=== PATIENT | female | born 1945 | race Caucasian/White ===

== ENCOUNTER 2017-03-30 13:33 | Inpatient (IN) | payer MEDICARE, SELFPAY ==
[2017-03-30 13:34] VITALS: BP 93/31; PULSE 76; RESP 22; TEMP 36.4; O2SAT 96; BMI 24.2
[2017-03-30 15:04] LABS: Absolute Lymphocyte Count 1.76 X10^3/ul (0.83-4.51); Absolute Neutrophil Count 12.1 X10^3/uL (2.0-7.7); Basophil# 0.02 X10^3/uL; Basophil% 0.1 % (0-1); Eosinophil# 0.11 X10^3/uL; Eosinophils% 0.7 % (0-5); Hematocrit 42.7 % (37-47); Hemoglobin 14.8 g/dl (12.0-15.0); Lymphocyte # 1.76 X10^3/ul (4.0); Mean Corp Hgb Conc 34.7 g/gl (32-36); Mean Corpuscular Hgb 32.2 pg (27.0-32.0); Mean Platelet Vol. 9.2 fl (6.2-12.0); Monocyte# 0.73 X10^3/uL; Neutrophil # 12.08 X10^3/uL (2.7-7.7); Neutrophil % 82.1 % (47-70); Platelet Count 361 K/mm3 (150-450); RBC Distribution Width CV 13.2 % (11.6-14.6); RBC Distribution Width SD 43.8 fl (35.1-43.9); Red Blood Count 4.59 M/mm3 (4.2-5.4); White Blood Count 14.7 K/mm3 (4.4-11.0)
[2017-03-30 15:06] LABS: POSITIVE COUNT NO; POSITIVE DIFFERENTIAL NO; POSITIVE MORPHOLOGY NO
--- NOTE | 2017-03-30 15:09 | EKG12_ITS ---
Test Reason : ABD PAIN Blood Pressure : / mmHG Vent. Rate : 069 BPM Atrial Rate : 069 BPM P-R Int : 196 ms QRS Dur : 092 ms QT Int : 420 ms P-R-T Axes : 053 015 063 degrees QTc Int : 450 ms Normal sinus rhythm Nonspecific T wave abnormality Abnormal ECG Confirmed by LEVY CHAU ([id number]), editorial manager PAM JIANG ([id number] on 04/01/2017 12:02:10 PM Referred By: MYNOR Confirmed By:LEVY CHAU
[2017-03-30] MEDS: Ondansetron 4 MG/2 ML Vial IV (15:24)
[2017-03-30] MEDS: 0.9% Normal Saline 1,000 ML 1000 ML IV (15:24)
[2017-03-30 15:40] VITALS: BP 122/63; PULSE 68; RESP 16
[2017-03-30 15:51] LABS: Anion Gap 9 (5-15); BUN 32 mg/dL (7-18); BUN/Creat Ratio 34.5 RATIO (10-20); Calcium,Total 9.2 mg/dL (8.5-10.1); Chloride 103 mmol/L (98-107); Creatinine, Serum 0.93 mg/dL (0.55-1.02); EST Glomerular Filtration Rate 64 mL/min (>60); Est Glom Filt Rate - Afr Amer 77 mL/min (>60); Glucose 149 mg/dL (70-110); Lipase 39667 U/L (73-393); Potassium 3.4 mmol/L (3.5-5.1); Sodium Level 139 mmol/L (136-145)
[2017-03-30 15:55] LABS: Lactic Acid 1.2 mmol/L (0.4-2.0)
--- NOTE | 2017-03-30 15:58 | ED.RN ---
PT REFUSES CT. STATES SHE FEELS IF THE PAIN IS CAUSED BY PANCREAS AND DOES NOT WANT ANOTHER CT. LAST STUDY DONE LAST YEAR. DR HANNA.
[2017-03-30 16:12] LABS: AST(SGOT) 47 U/L (15-37); Alanine Aminotransfer ALT/SGPT 56 U/L (12-78); Albumin, Serum 3.8 g/dL (3.4-5.0); Alkaline Phosphatase 71 U/L (45-117); Bilirubin, Direct 0.06 mg/dL (0.00-0.30); Globulin 3.9 g/dL (2.2-4.2); Protein, Total 7.7 g/dL (6.4-8.2)
--- NOTE | 2017-03-30 16:20 | ED.DCSUM_ITS ---
- ER Visit Summary Date of Service: 03/30/17 Chief Complaint: Abdominal pain History of Present Illness: The patient is a 71 F with history of multiple episodes of pancreatitis presents with 1 day of epigastric abdominal pain. Patient states this is consistent with her pancreatitis. She has been having nausea, vomiting, and epigastric abdominal pain radiating in a bandlike pattern around into the back. She denies fever, shortness of breath, urinary symptoms, diarrhea, or other complaints. She had multiple episodes of pancreatitis in 2016 and was told she had a cyst in her pancreas that would require resection. Patient did not want surgery and went 1 year without any issues. Now she is having another flare. She denies any other history. Denies any cancer on biopsy of her pancreas. She denies any history of alcoholism or alcoholic pancreatitis, she still has her gallbladder and states that it has never been implicated in her pancreatitis. Physical Examination: Vital signs: afebrile, hemodynamically stable, no hypoxia on room air General: well nourished, well developed, in no distress Skin: warm, dry, no rash, no pallor HEENT: normocephalic and atraumatic; PERRL, EOMI, moist mucous membranes Cardiovascular: regular rate and rhythm without murmurs, no peripheral edema, 2 + pulses all distal extremities Respiratory: No increased work of breathing, lungs are clear to auscultation bilaterally, no rales, rhonchi or wheezing Abdominal: Abdomen is soft, tender in the epigastrium with hyperactive bowel sounds, voluntary guarding, no rebound, no masses MSK: Moves all extremities, no deformities, normal strength Neuro: Awake and alert, oriented ?4. No facial droop, sensation and motor function intact and symmetric Test Results: Abnormal Lab Results 03/30/17 03/30/17 03/30/17 14:10 14:10 14:10 WBC 14.7 H RBC 4.59 Hgb 14.8 Hct 42.7 MCV 93.0 MCH 32.2 H MCHC 34.7 RDW 13.2 RDW Differential 43.8 Plt Count 361 MPV 9.2 Immature Gran % (Auto) 0.100 Neut % (Auto) 82.1 H Lymph % (Auto) 12.0 L [place] % (Auto) 5.0 Eos % (Auto) 0.7 Baso % (Auto) 0.1 Absolute Neuts (auto) 12.1 H Absolute Lymphs (auto) 1.76 Total Counted Not Reportable Sodium 139 Potassium 3.4 L Chloride 103 Carbon Dioxide 27.0 Anion Gap 9 BUN 32 H Creatinine 0.93 Estim Creat Clear Calc 49.30 Est GFR (MDRD) Af Amer 77 Est GFR (MDRD) Non-Af 64 BUN/Creatinine Ratio 34.5 H Glucose 149 H Lactic Acid Calcium 9.2 Total Bilirubin 0.20 Direct Bilirubin 0.06 AST 47 H ALT 56 Alkaline Phosphatase 71 Troponin I < 0.02 Total Protein 7.7 Albumin 3.8 Globulin 3.9 Lipase 55627 H 03/30/17 15:21 WBC RBC Hgb Hct MCV MCH MCHC RDW RDW Differential Plt Count MPV Immature Gran % (Auto) Neut % (Auto) Lymph % (Auto) [place] % (Auto) Eos % (Auto) Baso % (Auto) Absolute Neuts (auto) Absolute Lymphs (auto) Total Counted Sodium Potassium Chloride Carbon Dioxide Anion Gap BUN Creatinine Estim Creat Clear Calc Est GFR (MDRD) Af Amer Est GFR (MDRD) Non-Af BUN/Creatinine Ratio Glucose Lactic Acid 1.2 Calcium Total Bilirubin Direct Bilirubin AST ALT Alkaline Phosphatase Troponin I Total Protein Albumin Globulin Lipase Emergency Department Course and Treatment: She was given Zofran, morphine and IV hydration. Given the reported history of pancreatic abnormality patient as well as patient's voluntary guarding on exam, a CT scan was recommended to evaluate for any possible complicated pancreatitis or a gallbladder ultrasound to eval for gallstone pancreatitis. Patient refused any imaging and stated she knows it is the cyst in her pancreas. Lipase 39,000 on workup. Leukocytosis of 14.7. Lactate normal. Troponin negative. EKG showed no ischemic changes. Patient will be admitted for further pain control and management of acute pancreatitis, including IV fluids while patient is n.p.o. She was advised that she may require imaging or further workup to evaluate the underlying cause of her pancreatitis today despite her refusing any imaging in the emergency department. She discussed with Dr. Marrero. Treatment Plan: [] Disposition: [] Impression: Acute pancreatitis, history of pancreatitis This note was generated with [employer] dictation software. It may contain incorrect words, spelling, and punctuation that were not noted in review of the chart prior to signing ED Disposition - Plan for ED Patient: Chief Complaint: Abd Pain Referrals: Care Physician,No Primary [Primary Care Provider] -
[2017-03-30 16:35] VITALS: BMI 24.1
[2017-03-30 17:15] VITALS: BP 116/67; PULSE 74; RESP 16; O2SAT 97
--- NOTE | 2017-03-30 17:15 | NURSING ---
208 ANIKA ACUTE ON CHRONIC PANCREATITIS
--- NOTE | 2017-03-30 17:27 | PCM.HP.STD ---
<Jennifer Camara - Last Filed: 03/30/17 18:01> Problem List (1) Acute on chronic pancreatitis Status: Acute History of Present Illness Date of Admission: 03/30/17 Chief Complaint: abdominal pain, nausea. The patient is a 71 year old F who presents to the emergency room with abdominal pain and nausea which began around 10 AM this morning. Patient has had pancreatitis in the past, she states she has had a total of 4 episodes where she has been treated for pancreatitis, most recently in 2016. This morning prior to work she states she developed some discomfort in her abdomen which gradually worsened throughout the day. Patient also became nauseated. Denies emesis. States she did have a few episodes of chills, no subjective fever. She describes the abdominal pain as sharp in nature and radiated to her left side and back. She denies diarrhea, recent illness. Denies other associated symptoms. Patient states she was previously diagnosed with a pancreatic cyst which was recommended to be surgically removed. It was recommended that she follow-up with a specialist in [facility] [place] which she has declined. She states when she has a flareup it typically resolves with nothing to eat or drink and IV fluids. She does not want any imaging of her abdomen. She states she does not want any dye injected for the reasoning that she believes she really knows what is causing her pancreatitis. She states her pancreatic cyst was biopsied in the past and found to be benign. She denies any other chronic medical history. Past Medical History Past Medical History (Chronic Problems): Chronic Problems Pancreatic benign cyst (Chronic) Allergies No Known Allergies Allergy (Verified 03/30/17 13:37) Home Medications: Ambulatory Orders Medication Instructions Recorded Ascorbic Acid [Vitamin C] 1,000 mg PO BREAKFAST 12/25/12 Co Q10 200 [Co Q-10] 100 mg PO DAILY 12/25/12 Magnesium 250 mg PO DAILY 12/25/12 Multivits,Ca,Minerals/Iron/FA [Sm 1 each PO DAILY 12/25/12 Women's One Daily Tablet] [place] 3/Dha/Epa/Vitamin D3 1 each PO DAILY 12/25/12 [[place]-3 + Vitamin D3 Softgel] Calcium Carbonate/Vitamin D3 1 each PO DAILY 01/08/16 [Calcium 500-Vit D3 200 Tablet] Cholecalciferol (VIT D3) [Vitamin 1,000 unit PO DAILY 01/08/16 D3] Acetaminophen [Extra Strength 500 mg PO 4X/DAY PRN PRN #1 tablet 01/10/16 Non-Aspirin] Ibuprofen 600 mg PO 4X/DAY PRN #1 tablet 01/10/16 Surgical History: - - Rotator cuff tear, rectocele repair, shoulder surgery Psychiatric History: No pertinent psych hx 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 Review of Systems Constitutional: Reports: Chills. Denies: Anorexia, Fever, Weakness, Fatigue HEENT: Denies: Head Aches, Sinus Congestion, Sinus Drainage Respiratory: Denies: Cough, Shortness of breath at rest, Sputum production Gastrointestinal: Reports: Abdominal Pain, Nausea. Denies: Diarrhea, Hematemesis, Hematochezia, Melena, Vomiting Genitourinary: Denies: Dysuria Musculoskeletal: Denies: Joint Pain, Joint Tenderness Skin: Denies: Rash, Wounds Neurological: Denies: Numbness, Tingling, Focal weakness Psychiatric: Denies: Anxiety, Depression, Homicidal Ideations, Suicidal Ideations Hematologic/ Lymphatic: Denies: Easy Bruising, Easy Bleeding VTE Information - Inpt Only VTE Present on Admission: No VTE Mechan Device Prophylaxis: None VTE Pharm Prophylaxis ordered?: Yes - Physical Exam General: Alert, Oriented x3, Cooperative, No apparent distress HEENT: Atraumatic, PERRLA, EOMI, Normocephalic Neck: Supple, No JVD, Negative Carotid Bruits Lungs: Clear to auscultation, Normal air movement Cardiovascular: Regular rate, Regular Rhythm, Normal S1, Normal S2, No murmurs Abdomen: Bowel Sounds Present, Soft, Non-Distended, Tender Extremities: No clubbing, No cyanosis, No edema, Capillary Refill Less than 3 Seconds Skin: No rashes, No breakdown Musculoskeletal: No Tenderness to Palpation of Joints or Extremities Neurological: Cranial nerves II-XII grossly intact, Neuro grossly intact Psych/Mental Status: Normal Affect, Appropriate Vital Signs Temp Pulse Resp BP Pulse Ox 97.6 F L 74 16 116/67 97 03/30/17 13:34 03/30/17 17:15 03/30/17 17:15 03/30/17 17:15 03/30/17 17:15 Oxygen Delivery Method Room Air Weight: 63.957 kg Body Mass Index (BMI) 24.2 Laboratory Tests Past 24 Hrs 03/30/17 03/30/17 03/30/17 14:10 14:10 14:10 WBC 14.7 H RBC 4.59 Hgb 14.8 Hct 42.7 MCV 93.0 MCH 32.2 H MCHC 34.7 RDW 13.2 RDW Differential 43.8 Plt Count 361 MPV 9.2 Immature Gran % (Auto) 0.100 Neut % (Auto) 82.1 H Lymph % (Auto) 12.0 L [place] % (Auto) 5.0 Eos % (Auto) 0.7 Baso % (Auto) 0.1 Absolute Neuts (auto) 12.1 H Absolute Lymphs (auto) 1.76 Total Counted Not Reportable Sodium 139 Potassium 3.4 L Chloride 103 Carbon Dioxide 27.0 Anion Gap 9 BUN 32 H Creatinine 0.93 Estim Creat Clear Calc 49.30 Est GFR (MDRD) Af Amer 77 Est GFR (MDRD) Non-Af 64 BUN/Creatinine Ratio 34.5 H Glucose 149 H Lactic Acid Calcium 9.2 Total Bilirubin 0.20 Direct Bilirubin 0.06 AST 47 H ALT 56 Alkaline Phosphatase 71 Troponin I < 0.02 Total Protein 7.7 Albumin 3.8 Globulin 3.9 Lipase 49106 H 03/30/17 15:21 WBC RBC Hgb Hct MCV MCH MCHC RDW RDW Differential Plt Count MPV Immature Gran % (Auto) Neut % (Auto) Lymph % (Auto) [place] % (Auto) Eos % (Auto) Baso % (Auto) Absolute Neuts (auto) Absolute Lymphs (auto) Total Counted Sodium Potassium Chloride Carbon Dioxide Anion Gap BUN Creatinine Estim Creat Clear Calc Est GFR (MDRD) Af Amer Est GFR (MDRD) Non-Af BUN/Creatinine Ratio Glucose Lactic Acid 1.2 Calcium Total Bilirubin Direct Bilirubin AST ALT Alkaline Phosphatase Troponin I Total Protein Albumin Globulin Lipase Assessment/Plan 1. Acute on chronic pancreatitis-lipase on admission over 39,000. Patient has documented lipase in 2012 and 2015 which was equally elevated. NPO. IV fluids. Surgery consult. Morphine prn for pain. Zofran for nausea. Discussed with patient recommendations of repeat abdominal imaging which she currently declines. She states she has had multiple episodes of pancreatitis in the past secondary to a pancreatic cyst. She declines further intervention of cyst. Patient denies chronic alcohol use. Autoimmune studies were completed in the past which were found to be negative. Previous triglycerides during episode of pancreatitis WNL. Afebrile. Patient does have mild leukocytosis. Continue to monitor. 2. Hypokalemia, mild-replace orally. Monitor BMP. 3. Mild dehydration-secondary to #1. IV fluids. Continue to monitor. 4. Elevated glucose- Check hemoglobin A1C. DVT prophylaxis-Lovenox SC This patient was seen by NIALL Osullivan under the supervision of Dr. Marrero. <Baljit Marrero - Last Filed: 03/30/17 20:27> Problem List (1) Pancreatic benign cyst Status: Chronic (2) Acute on chronic pancreatitis Status: Acute History of Present Illness Seen and examined The patient has history of recurrent pancreatitis, first time in 2011 and was severe and then in remission for next 3 years. After that, she had 3 episodes of pancreatitis in year 2016 and then had follow-up visit to [facility], Pancreatologist and had an extensive workup there. At that time it was found that she has benign pancreatic cyst on biopsy which is pressing on the pancreatic duct and possible cause for her recurrent pancreatitis. Patient does not have history of alcohol or gallstone related pancreatitis. Currently, her pain is much better. She also had paraspinal upper lumbar back pain due to pancreatitis which has relieved. [] Past Medical History Allergies No Known Allergies Allergy (Verified 03/30/17 13:37) - Physical Exam Cardiovascular: Regular rate, No murmurs Abdomen: Bowel Sounds Present, Non-Distended, Hyperactive Bowel Sounds, Tender - Mainly over epigastric region. Extremities: No edema, Capillary Refill Less than 3 Seconds Musculoskeletal: No Tenderness to Palpation of Joints or Extremities Vital Signs Temp Pulse Resp BP Pulse Ox 98.6 F 70 16 116/65 96 03/30/17 18:11 03/30/17 18:11 03/30/17 18:11 03/30/17 18:11 03/30/17 18:11 Oxygen Delivery Method Room Air Weight: 141 lb 8.588 oz Body Mass Index (BMI) 25.0 Assessment/Plan This patient was seen in conjunction with Jennifer KEITH. I have independently interviewed and examined the patient and reviewed pertinent history, examination findings, laboratory and plan of management. I have reviewed the note and agree with the documented findings with the few additional points. In brief, patient is admitted for acute on recurrent pancreatitis, first episode in 2011 as mentioned in history of present illness. It seems that she has recurrent pancreatitis due to benign pancreatic cyst, found on biopsy which is pressing on the pancreatic duct and possible cause for her recurrent pancreatitis. Patient does not have history of alcohol or gallstone related pancreatitis. Currently, her abdominal pain is much better. Her upper back pain is relieved. Continue the management as mentioned above. She does not want any imaging test. I have discussed my assessment with BOOT TURNERJennifer and orders have been reviewed. Code Visit Inpatient E&M: 55949 Init Hosp L3
[2017-03-30 17:40] VITALS: BMI 25.0
--- NOTE | 2017-03-30 17:42 | HP.PCM_ITS ---
<Jennifer Camara - Last Filed: 03/30/17 18:01> Problem List (1) Acute on chronic pancreatitis Status: Acute History of Present Illness Date of Admission: 03/30/17 Chief Complaint: abdominal pain, nausea. The patient is a 71 year old F who presents to the emergency room with abdominal pain and nausea which began around 10 AM this morning. Patient has had pancreatitis in the past, she states she has had a total of 4 episodes where she has been treated for pancreatitis, most recently in 2016. This morning prior to work she states she developed some discomfort in her abdomen which gradually worsened throughout the day. Patient also became nauseated. Denies emesis. States she did have a few episodes of chills, no subjective fever. She describes the abdominal pain as sharp in nature and radiated to her left side and back. She denies diarrhea, recent illness. Denies other associated symptoms. Patient states she was previously diagnosed with a pancreatic cyst which was recommended to be surgically removed. It was recommended that she follow-up with a specialist in [facility] which she has declined. She states when she has a flareup it typically resolves with nothing to eat or drink and IV fluids. She does not want any imaging of her abdomen. She states she does not want any dye injected for the reasoning that she believes she really knows what is causing her pancreatitis. She states her pancreatic cyst was biopsied in the past and found to be benign. She denies any other chronic medical history. Past Medical History Past Medical History (Chronic Problems): Chronic Problems Pancreatic benign cyst (Chronic) Allergies No Known Allergies Allergy (Verified 03/30/17 13:37) Home Medications: Ambulatory Orders Medication Instructions Recorded Ascorbic Acid [Vitamin C] 1,000 mg PO BREAKFAST 12/25/12 Co Q10 200 [Co Q-10] 100 mg PO DAILY 12/25/12 Magnesium 250 mg PO DAILY 12/25/12 Multivits,Ca,Minerals/Iron/FA [Sm 1 each PO DAILY 12/25/12 Women's One Daily Tablet] [place] 3/Dha/Epa/Vitamin D3 1 each PO DAILY 12/25/12 [[place]-3 + Vitamin D3 Softgel] Calcium Carbonate/Vitamin D3 1 each PO DAILY 01/08/16 [Calcium 500-Vit D3 200 Tablet] Cholecalciferol (VIT D3) [Vitamin 1,000 unit PO DAILY 01/08/16 D3] Acetaminophen [Extra Strength 500 mg PO 4X/DAY PRN PRN #1 tablet 01/10/16 Non-Aspirin] Ibuprofen 600 mg PO 4X/DAY PRN #1 tablet 01/10/16 Surgical History: - - Rotator cuff tear, rectocele repair, shoulder surgery Psychiatric History: No pertinent psych hx 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 Review of Systems Constitutional: Reports: Chills. Denies: Anorexia, Fever, Weakness, Fatigue HEENT: Denies: Head Aches, Sinus Congestion, Sinus Drainage Respiratory: Denies: Cough, Shortness of breath at rest, Sputum production Gastrointestinal: Reports: Abdominal Pain, Nausea. Denies: Diarrhea, Hematemesis, Hematochezia, Melena, Vomiting Genitourinary: Denies: Dysuria Musculoskeletal: Denies: Joint Pain, Joint Tenderness Skin: Denies: Rash, Wounds Neurological: Denies: Numbness, Tingling, Focal weakness Psychiatric: Denies: Anxiety, Depression, Homicidal Ideations, Suicidal Ideations Hematologic/ Lymphatic: Denies: Easy Bruising, Easy Bleeding VTE Information - Inpt Only VTE Present on Admission: No VTE Mechan Device Prophylaxis: None VTE Pharm Prophylaxis ordered?: Yes - Physical Exam General: Alert, Oriented x3, Cooperative, No apparent distress HEENT: Atraumatic, PERRLA, EOMI, Normocephalic Neck: Supple, No JVD, Negative Carotid Bruits Lungs: Clear to auscultation, Normal air movement Cardiovascular: Regular rate, Regular Rhythm, Normal S1, Normal S2, No murmurs Abdomen: Bowel Sounds Present, Soft, Non-Distended, Tender Extremities: No clubbing, No cyanosis, No edema, Capillary Refill Less than 3 Seconds Skin: No rashes, No breakdown Musculoskeletal: No Tenderness to Palpation of Joints or Extremities Neurological: Cranial nerves II-XII grossly intact, Neuro grossly intact Psych/Mental Status: Normal Affect, Appropriate Vital Signs Temp Pulse Resp BP Pulse Ox 97.6 F L 74 16 116/67 97 03/30/17 13:34 03/30/17 17:15 03/30/17 17:15 03/30/17 17:15 03/30/17 17:15 Oxygen Delivery Method Room Air Weight: 63.957 kg Body Mass Index (BMI) 24.2 Laboratory Tests Past 24 Hrs 03/30/17 03/30/17 03/30/17 14:10 14:10 14:10 WBC 14.7 H RBC 4.59 Hgb 14.8 Hct 42.7 MCV 93.0 MCH 32.2 H MCHC 34.7 RDW 13.2 RDW Differential 43.8 Plt Count 361 MPV 9.2 Immature Gran % (Auto) 0.100 Neut % (Auto) 82.1 H Lymph % (Auto) 12.0 L [place] % (Auto) 5.0 Eos % (Auto) 0.7 Baso % (Auto) 0.1 Absolute Neuts (auto) 12.1 H Absolute Lymphs (auto) 1.76 Total Counted Not Reportable Sodium 139 Potassium 3.4 L Chloride 103 Carbon Dioxide 27.0 Anion Gap 9 BUN 32 H Creatinine 0.93 Estim Creat Clear Calc 49.30 Est GFR (MDRD) Af Amer 77 Est GFR (MDRD) Non-Af 64 BUN/Creatinine Ratio 34.5 H Glucose 149 H Lactic Acid Calcium 9.2 Total Bilirubin 0.20 Direct Bilirubin 0.06 AST 47 H ALT 56 Alkaline Phosphatase 71 Troponin I < 0.02 Total Protein 7.7 Albumin 3.8 Globulin 3.9 Lipase 12726 H 03/30/17 15:21 WBC RBC Hgb Hct MCV MCH MCHC RDW RDW Differential Plt Count MPV Immature Gran % (Auto) Neut % (Auto) Lymph % (Auto) [place] % (Auto) Eos % (Auto) Baso % (Auto) Absolute Neuts (auto) Absolute Lymphs (auto) Total Counted Sodium Potassium Chloride Carbon Dioxide Anion Gap BUN Creatinine Estim Creat Clear Calc Est GFR (MDRD) Af Amer Est GFR (MDRD) Non-Af BUN/Creatinine Ratio Glucose Lactic Acid 1.2 Calcium Total Bilirubin Direct Bilirubin AST ALT Alkaline Phosphatase Troponin I Total Protein Albumin Globulin Lipase Assessment/Plan 1. Acute on chronic pancreatitis-lipase on admission over 39,000. Patient has documented lipase in 2012 and 2015 which was equally elevated. NPO. IV fluids. Surgery consult. Morphine prn for pain. Zofran for nausea. Discussed with patient recommendations of repeat abdominal imaging which she currently declines. She states she has had multiple episodes of pancreatitis in the past secondary to a pancreatic cyst. She declines further intervention of cyst. Patient denies chronic alcohol use. Autoimmune studies were completed in the past which were found to be negative. Previous triglycerides during episode of pancreatitis WNL. Afebrile. Patient does have mild leukocytosis. Continue to monitor. 2. Hypokalemia, mild-replace orally. Monitor BMP. 3. Mild dehydration-secondary to #1. IV fluids. Continue to monitor. 4. Elevated glucose- Check hemoglobin A1C. DVT prophylaxis-Lovenox SC This patient was seen by NIALL Osullivan under the supervision of Dr. Marrero. <Baljit Marrero - Last Filed: 03/30/17 20:27> Problem List (1) Pancreatic benign cyst Status: Chronic (2) Acute on chronic pancreatitis Status: Acute History of Present Illness Seen and examined The patient has history of recurrent pancreatitis, first time in 2011 and was severe and then in remission for next 3 years. After that, she had 3 episodes of pancreatitis in year 2016 and then had follow-up visit to [facility], Pancreatologist and had an extensive workup there. At that time it was found that she has benign pancreatic cyst on biopsy which is pressing on the pancreatic duct and possible cause for her recurrent pancreatitis. Patient does not have history of alcohol or gallstone related pancreatitis. Currently, her pain is much better. She also had paraspinal upper lumbar back pain due to pancreatitis which has relieved. [] Past Medical History Allergies No Known Allergies Allergy (Verified 03/30/17 13:37) - Physical Exam Cardiovascular: Regular rate, No murmurs Abdomen: Bowel Sounds Present, Non-Distended, Hyperactive Bowel Sounds, Tender - Mainly over epigastric region. Extremities: No edema, Capillary Refill Less than 3 Seconds Musculoskeletal: No Tenderness to Palpation of Joints or Extremities Vital Signs Temp Pulse Resp BP Pulse Ox 98.6 F 70 16 116/65 96 03/30/17 18:11 03/30/17 18:11 03/30/17 18:11 03/30/17 18:11 03/30/17 18:11 Oxygen Delivery Method Room Air Weight: 141 lb 8.588 oz Body Mass Index (BMI) 25.0 Assessment/Plan This patient was seen in conjunction with Jennifer KEITH. I have independently interviewed and examined the patient and reviewed pertinent history, examination findings, laboratory and plan of management. I have reviewed the note and agree with the documented findings with the few additional points. In brief, patient is admitted for acute on recurrent pancreatitis, first episode in 2011 as mentioned in history of present illness. It seems that she has recurrent pancreatitis due to benign pancreatic cyst, found on biopsy which is pressing on the pancreatic duct and possible cause for her recurrent pancreatitis. Patient does not have history of alcohol or gallstone related pancreatitis. Currently, her abdominal pain is much better. Her upper back pain is relieved. Continue the management as mentioned above. She does not want any imaging test. I have discussed my assessment with RETAIL CUSTOMER SERVICE REPRESENTATIVEJennifer and orders have been reviewed. Code Visit Inpatient E&M: 72588 Init Hosp L3
[2017-03-30 17:47] VITALS: PULSE 70
[2017-03-30 18:11] VITALS: BP 116/65; PULSE 70; RESP 16; TEMP 37; O2SAT 96
[2017-03-30] MEDS: 0.9% Normal Saline 1,000 ML 150 ML IV (18:20)
[2017-03-30 21:18] VITALS: BP 117/57; PULSE 61; RESP 18; TEMP 36.2; O2SAT 94
[2017-03-31 03:40] VITALS: BP 109/48; PULSE 58; RESP 20; TEMP 36.4; O2SAT 95
[2017-03-31] MEDS: 0.9% Normal Saline 1,000 ML 150 ML IV (03:40)
[2017-03-31 08:04] LABS: Anion Gap 10 (5-15); BUN 20 mg/dL (7-18); BUN/Creat Ratio 23.9 RATIO (10-20); Calcium,Total 8.3 mg/dL (8.5-10.1); Chloride 105 mmol/L (98-107); Cholesterol 190 mg/dL (200); Creatinine, Serum 0.84 mg/dL (0.55-1.02); EST Glomerular Filtration Rate 72 mL/min (>60); Est Glom Filt Rate - Afr Amer 87 mL/min (>60); Estimated Creatinine Clearance 49.99 ml/min; Glucose 89 mg/dL (70-110); High Density Lipoprotein 42 mg/dL; Lipase 3725 U/L (73-393); Potassium 3.8 mmol/L (3.5-5.1); Sodium Level 140 mmol/L (136-145); Triglycerides 93 mg/dL; Very Low Density Lipoprotein 19 mg/dL (5-40)
[2017-03-31 08:08] LABS: Hemoglobin 13.1 g/dl (12.0-15.0); Mean Corp Hgb Conc 33.6 g/gl (32-36); Mean Corpuscular Hgb 31.9 pg (27.0-32.0); Mean Corpuscular Volume 94.9 fL (81-99); Mean Platelet Vol. 9.3 fl (6.2-12.0); Platelet Count 312 K/mm3 (150-450); RBC Distribution Width CV 13.3 % (11.6-14.6); RBC Distribution Width SD 44.6 fl (35.1-43.9); Red Blood Count 4.11 M/mm3 (4.2-5.4); White Blood Count 6.8 K/mm3 (4.4-11.0)
[2017-03-31 08:18] LABS: Scan Indicated on CBC? Y/N NO
[2017-03-31 08:30] VITALS: BP 110/62; PULSE 61; RESP 16; TEMP 36.6; O2SAT 95
--- NOTE | 2017-03-31 10:06 | PCM.PROGNOTE ---
Subjective: Patient seen and examined. Nausea improved. Denies fever, chills. Abdominal pain improved, continues to have mild tenderness to palpation. Tolerating clear liquid diet. Lipase significantly improved overnight. - Physical Exam General: Alert, Oriented x3, Cooperative, No apparent distress HEENT: Atraumatic, PERRLA, EOMI, Normocephalic Neck: Supple, No JVD, Negative Carotid Bruits Lungs: Clear to auscultation, Normal air movement Cardiovascular: Regular rate, Regular Rhythm, Normal S1, Normal S2, No murmurs Abdomen: Bowel Sounds Present, Soft, Non-Distended, - - Mild tenderness to palpation Extremities: No clubbing, No cyanosis, No edema, Capillary Refill Less than 3 Seconds Skin: No rashes, No breakdown Musculoskeletal: No Tenderness to Palpation of Joints or Extremities Neurological: Cranial nerves II-XII grossly intact, Neuro grossly intact Psych/Mental Status: Normal Affect, Appropriate Vital Signs Temp Pulse Resp BP Pulse Ox 97.8 F 61 16 110/62 95 03/31/17 08:30 03/31/17 08:30 03/31/17 08:30 03/31/17 08:30 03/31/17 08:30 Oxygen Delivery Method Room Air Weight: 64.2 kg Body Mass Index (BMI) 25.0 Intake and Output for Last 24 Hours 03/29/17 03/30/17 03/31/17 23:59 23:59 23:59 Intake Total 729 / 729 658 / 658 Balance 729 / 729 658 / 658 Laboratory Tests Past 24 Hrs 03/31/17 03/31/17 03/31/17 05:58 05:58 05:58 WBC 6.8 RBC 4.11 L Hgb 13.1 Hct 39.0 MCV 94.9 MCH 31.9 MCHC 33.6 RDW 13.3 RDW Differential 44.6 H Plt Count 312 MPV 9.3 Sodium 140 Potassium 3.8 Chloride 105 Carbon Dioxide 25.0 Anion Gap 10 BUN 20 H Creatinine 0.84 Estim Creat Clear Calc 49.99 Est GFR (MDRD) Af Amer 87 Est GFR (MDRD) Non-Af 72 BUN/Creatinine Ratio 23.9 H Glucose 89 Hemoglobin A1c Pending Calcium 8.3 L Triglycerides 93 Cholesterol 190 LDL Cholesterol 129 VLDL Cholesterol 19 HDL Cholesterol 42 Lipase 3725 H Assessment/Plan 1. Acute on chronic pancreatitis-lipase on admission over 39,000. Lipase improved to 3725. Patient has documented lipase in 2013 and 2016 which were equally elevated. NPO. IV fluids. Surgery consult. Morphine prn for pain. Zofran for nausea. Discussed with patient recommendations of repeat abdominal imaging which she currently declines. She states she has had multiple episodes of pancreatitis in the past secondary to a pancreatic cyst. She declines further intervention of cyst. Patient denies chronic alcohol use. Autoimmune studies were completed in the past which were found to be negative. Previous triglycerides during episode of pancreatitis WNL. Afebrile. Mild leukocytosis on admission has resolved. Continue IV fluids and n.p.o. through today. Anticipate advance diet tomorrow with possible discharge. 2. Hypokalemia, mild-replaced orally. Monitor BMP. 3. Mild dehydration-secondary to #1. Improved, continue IV fluids. 4. Elevated glucose-hemoglobin A1c 5.7%. DVT prophylaxis-Lovenox SC This patient was seen by NIALL Osullivan under the supervision of Dr. Vaughn.
[2017-03-31 10:57] LABS: Hemoglobin A1c 5.7 % (4.2-6.3)
--- NOTE | 2017-03-31 12:12 | CASEMGMT ---
See RN CM Assessment Link. DC PLAN: home on discharge. Pt does not have PCP, will call herself to re-establish with Dr. Patton or Dr. Hodgson. Nuno PEREYRAN RN ACM
[2017-03-31] MEDS: 0.9% Normal Saline 1,000 ML 175 ML IV ×2 (12:13→17:56)
[2017-03-31 14:30] VITALS: BP 115/55; PULSE 73; RESP 16; TEMP 37; O2SAT 98
--- NOTE | 2017-03-31 15:44 | CHAPLAIN ---
Type of Pastoral Visit _x__ Initial Visit ___ Follow-up Visit ___ On-call Visit ___ General Patient Visit ___ Spiritual Assessment ___ Family Conference ___ Bereavement ___ Rapid Response ___ Code Blue ___ Other (describe below) Pastoral Care Referral From _x__ Patient ___ Family ___ Nurse ___ Physician ___ Log Washer ___ Computer Game Programmer ___ Other (describe below) Sacrament/Intervention _x__ Active listening ___ Anointing ___ Tenriism ___ Bereavement ___ Communion _x__ Shanthi exploration ___ ___ Life review _x__ Prayer ___ Reconciliation ___ Sacrament of Sick ___ Supportive presence ___ Wedding ___ Other (describe below) Pastoral Comments
[2017-03-31 21:28] VITALS: BP 117/57; PULSE 65; RESP 16; TEMP 36.6; O2SAT 100
[2017-03-31] MEDS: Temazepam 15 MG Capsule 30 MG PO (22:29)
[2017-04-01] MEDS: 0.9% Normal Saline 1,000 ML 175 ML IV ×2 (00:04→05:13)
[2017-04-01 05:18] VITALS: BP 118/67; PULSE 67; RESP 16; TEMP 36.7; O2SAT 98
[2017-04-01 07:29] LABS: Hematocrit 39.8 % (37-47); Hemoglobin 13.4 g/dl (12.0-15.0); Mean Corp Hgb Conc 33.7 g/gl (32-36); Mean Corpuscular Hgb 31.7 pg (27.0-32.0); Mean Corpuscular Volume 94.1 fL (81-99); Mean Platelet Vol. 9.1 fl (6.2-12.0); Platelet Count 280 K/mm3 (150-450); RBC Distribution Width CV 13.1 % (11.6-14.6); RBC Distribution Width SD 43.4 fl (35.1-43.9); Red Blood Count 4.23 M/mm3 (4.2-5.4); White Blood Count 5.8 K/mm3 (4.4-11.0)
[2017-04-01 07:38] LABS: Anion Gap 9 (5-15); BUN 15 mg/dL (7-18); BUN/Creat Ratio 19.2 RATIO (10-20); Calcium,Total 8.4 mg/dL (8.5-10.1); Chloride 106 mmol/L (98-107); Creatinine, Serum 0.78 mg/dL (0.55-1.02); EST Glomerular Filtration Rate 78 mL/min (>60); Est Glom Filt Rate - Afr Amer 94 mL/min (>60); Estimated Creatinine Clearance 41.99 ml/min; Glucose 64 mg/dL (70-110); Lipase 1039 U/L (73-393); Potassium 3.6 mmol/L (3.5-5.1); Sodium Level 140 mmol/L (136-145)
[2017-04-01 07:54] LABS: Scan Indicated on CBC? Y/N NO
[2017-04-01 11:00] VITALS: BP 120/70; PULSE 65; RESP 16; TEMP 37.2; O2SAT 98
--- NOTE | 2017-04-01 11:56 | PCM.DC ---
- Discharge Diagnoses Current Active Problems: Current Active and Chronic Problems Pancreatic benign cyst (Chronic) You will use the following diet at home:: No restrictions - slowly advance diet back to normal avoiding fatty or acidic foods initially Allergies/Adverse Reactions: Allergies No Known Allergies Allergy (Verified 03/30/17 13:37) Medications to take at Discharge Ascorbic Acid [Vitamin C] 1,000 mg PO BREAKFAST 12/25/12 Co Q10 200 [Co Q-10] 100 mg PO DAILY 12/25/12 Magnesium 250 mg PO DAILY 12/25/12 Multivits,Ca,Minerals/Iron/FA [Sm Women's One Daily Tablet] 1 each PO DAILY 12/25/12 [place] 3/Dha/Epa/Vitamin D3 [[place]-3 + Vitamin D3 Softgel] 1 each PO DAILY 12/25/12 Calcium Carbonate/Vitamin D3 [Calcium 500-Vit D3 200 Tablet] 1 each PO DAILY 01/08/16 Cholecalciferol (VIT D3) [Vitamin D3] 1,000 unit PO DAILY 01/08/16 Acetaminophen [Extra Strength Non-Aspirin] 500 mg PO 4X/DAY PRN PRN #1 tablet 01/10/16 Ibuprofen 600 mg PO 4X/DAY PRN #1 tablet 01/10/16 Ondansetron HCl [Zofran] 4 mg PO Q6H PRN PRN #12 tab 04/01/17 Oxycodone [Oxyir] 5 mg PO Q6H PRN PRN #8 tablet 04/01/17 The following prescriptions were given: Ondansetron HCl [Zofran] 4 mg PO Q6H PRN PRN #12 tab PRN Reason: Nausea Oxycodone [Oxyir] 5 mg PO Q6H PRN PRN #8 tablet PRN Reason: Pain Primary Care Physician: Care Physician,No Primary [Primary Care Provider] - Please follow up with your Primary Care Physician in: 1-2 weeks Please Follow Up With: Gastroenterology When: 2 weeks Proposed Discharge Date: 04/01/17
--- NOTE | 2017-04-01 16:38 | PCM.DC.SUM ---
Discharge Date and Diagnosis Date of Admission: 03/30/17 Date of Discharge: 04/01/17 - Primary Discharge Diagnosis Acute pancreatitis Chronic pancreatic cyst Hypokalemia resolved Mild dehydration resolved - Secondary Discharge Diagnosis Chronic Problems Pancreatic benign cyst (Chronic) Hospital Course and Treatment Operations: None Procedures: None Summary of Care Provided: Physical exam on day of discharge: General: Resting comfortably NAD Psych: A/Ox3 normal affect HEENT: [place]ARRLA AT NC Neck: Supple NT CV: RRR no m/t/r/g/h Resp: CTA Abd: [id number] Soft NT no guarding or rigidity Ext: DP2+= no edema Skin: W/D normal turgor Lymph/Heme: No active bleeding or adenopathy Neuro: CN2-12 intact Hospital course: The patient is a 71 year old F with a history of acute pancreatitis of unclear etiology who has had approximately 4 episodes in the past who presented to the emergency room with severe acute epigastric abdominal pain radiating to the back starting about 10:00 the morning prior. She does not know why she originally developed pancreatitis but states she has a known pancreatic cyst for which she is followed by a GI doctor at the [facility] and has been recommended to have surgery in the past however she did not pursue it. It is also been biopsied in the past and per the patient reported to be benign. She was found in the ER to have severely elevated lipase and was admitted to the general medical floor with acute pancreatitis. She was placed on IV fluids and bowel rest with supportive measures. The day of discharge she had complete resolution of her pain, no nausea, and her diet was advanced to clear liquids. She had a elevated BUN and a low potassium, she was given IV fluids and potassium with resolution of her hypokalemia and decrease in her BUN. She stated she desired to go home and slowly advance her diet at home. We advanced her diet here and after she tolerated p.o. intake she was discharged home. She was advised to follow-up with her GI doctor at the clinic in 2 weeks. She is also follow-up with her PCP. She does not have elevated triglycerides, no history of alcoholism, and is not a diabetic. She is discharged home in stable condition. This patient was seen by Murali Castellanos PA-C under the supervision of Doctor Vaughn. [] Discharge Diet: Bananas, Rice, Applesauce and [place] - Advanced slowly to normal diet, - - No alcohol at all Discharge Activity: Return to Normal Activity Home Medications: Medications to take at Discharge Ascorbic Acid [Vitamin C] 1,000 mg PO BREAKFAST 12/25/12 Co Q10 200 [Co Q-10] 100 mg PO DAILY 12/25/12 Magnesium 250 mg PO DAILY 12/25/12 Multivits,Ca,Minerals/Iron/FA [Sm Women's One Daily Tablet] 1 each PO DAILY 12/25/12 [place] 3/Dha/Epa/Vitamin D3 [[place]-3 + Vitamin D3 Softgel] 1 each PO DAILY 12/25/12 Calcium Carbonate/Vitamin D3 [Calcium 500-Vit D3 200 Tablet] 1 each PO DAILY 01/08/16 Cholecalciferol (VIT D3) [Vitamin D3] 1,000 unit PO DAILY 01/08/16 Acetaminophen [Extra Strength Non-Aspirin] 500 mg PO 4X/DAY PRN PRN #1 tablet 01/10/16 Ibuprofen 600 mg PO 4X/DAY PRN #1 tablet 01/10/16 Ondansetron HCl [Zofran] 4 mg PO Q6H PRN PRN #12 tab 04/01/17 Oxycodone [Oxyir] 5 mg PO Q6H PRN PRN #8 tablet 04/01/17 Following Prescrptions Were Given to Patient: Ondansetron HCl [Zofran] 4 mg PO Q6H PRN PRN #12 tab PRN Reason: Nausea Oxycodone [Oxyir] 5 mg PO Q6H PRN PRN #8 tablet PRN Reason: Pain Primary Care Physician: Care Physician,No Primary [Primary Care Provider] - Please follow up with your Primary Care Physician in: 1-2 weeks Please Follow Up With: Gastroenterology When: 2 weeks Disposition: Home Minutes spent on discharge:: 35 Patient Condition:: Stable Meaningful Use Info Meaningful Use Diagnoses (Choose all that apply): None applicable
--- NOTE | 2017-04-01 16:46 | DS.PCM_ITS ---
Discharge Date and Diagnosis Date of Admission: 03/30/17 Date of Discharge: 04/01/17 - Primary Discharge Diagnosis Acute pancreatitis Chronic pancreatic cyst Hypokalemia resolved Mild dehydration resolved - Secondary Discharge Diagnosis Chronic Problems Pancreatic benign cyst (Chronic) Hospital Course and Treatment Operations: None Procedures: None Summary of Care Provided: Physical exam on day of discharge: General: Resting comfortably NAD Psych: A/Ox3 normal affect HEENT: [place] AT NC Neck: Supple NT CV: RRR no m/t/r/g/h Resp: CTA Abd: [id number] Soft NT no guarding or rigidity Ext: DP2+= no edema Skin: W/D normal turgor Lymph/Heme: No active bleeding or adenopathy Neuro: CN2-12 intact Hospital course: The patient is a 71 year old F with a history of acute pancreatitis of unclear etiology who has had approximately 4 episodes in the past who presented to the emergency room with severe acute epigastric abdominal pain radiating to the back starting about 10:00 the morning prior. She does not know why she originally developed pancreatitis but states she has a known pancreatic cyst for which she is followed by a GI doctor at the [facility] and has been recommended to have surgery in the past however she did not pursue it. It is also been biopsied in the past and per the patient reported to be benign. She was found in the ER to have severely elevated lipase and was admitted to the general medical floor with acute pancreatitis. She was placed on IV fluids and bowel rest with supportive measures. The day of discharge she had complete resolution of her pain, no nausea, and her diet was advanced to clear liquids. She had a elevated BUN and a low potassium, she was given IV fluids and potassium with resolution of her hypokalemia and decrease in her BUN. She stated she desired to go home and slowly advance her diet at home. We advanced her diet here and after she tolerated p.o. intake she was discharged home. She was advised to follow-up with her GI doctor at the clinic in 2 weeks. She is also follow-up with her PCP. She does not have elevated triglycerides, no history of alcoholism, and is not a diabetic. She is discharged home in stable condition. This patient was seen by Murali Castellanos PA-C under the supervision of Doctor Vaughn. [] Discharge Diet: Bananas, Rice, Applesauce and [place] - Advanced slowly to normal diet, - - No alcohol at all Discharge Activity: Return to Normal Activity Home Medications: Medications to take at Discharge Ascorbic Acid [Vitamin C] 1,000 mg PO BREAKFAST 12/25/12 Co Q10 200 [Co Q-10] 100 mg PO DAILY 12/25/12 Magnesium 250 mg PO DAILY 12/25/12 Multivits,Ca,Minerals/Iron/FA [Sm Women's One Daily Tablet] 1 each PO DAILY [place] 3/Dha/Epa/Vitamin D3 [[place]-3 + Vitamin D3 Softgel] 1 each PO DAILY Calcium Carbonate/Vitamin D3 [Calcium 500-Vit D3 200 Tablet] 1 each PO DAILY 04/23 Cholecalciferol (VIT D3) [Vitamin D3] 1,000 unit PO DAILY 01/08/16 Acetaminophen [Extra Strength Non-Aspirin] 500 mg PO 4X/DAY PRN PRN #1 tablet Ibuprofen 600 mg PO 4X/DAY PRN #1 tablet 01/10/16 Ondansetron HCl [Zofran] 4 mg PO Q6H PRN PRN #12 tab 04/01/17 Oxycodone [Oxyir] 5 mg PO Q6H PRN PRN #8 tablet 04/01/17 Following Prescrptions Were Given to Patient: Ondansetron HCl [Zofran] 4 mg PO Q6H PRN PRN #12 tab PRN Reason: Nausea Oxycodone [Oxyir] 5 mg PO Q6H PRN PRN #8 tablet PRN Reason: Pain Primary Care Physician: Care Physician,No Primary [Primary Care Provider] - Please follow up with your Primary Care Physician in: 1-2 weeks Please Follow Up With: Gastroenterology When: 2 weeks Disposition: Home Minutes spent on discharge:: 35 Patient Condition:: Stable Meaningful Use Info Meaningful Use Diagnoses (Choose all that apply): None applicable
== END 2017-04-01 15:32 | disposition home or self-care (01) | DRG 439 ==
LOC: ED 17:14 → MS2 17:17
PROVIDERS: Nurse Practitioner Family; Admitting Provider Internal Medicine; Emergency Provider Emergency Medicine; Visit Provider Internal Medicine
DX: K85.90 Acute pancreatitis without necrosis or infection, unspecified (principal); K86.2 Cyst of pancreas; E86.0 Dehydration; E87.6 Hypokalemia
CPT/HCPCS: 36415; 80048; 80061; 80076; 83036; 83605; 83690; 84484; 85025; 85027; 93005; 99285; J7030; J7050; A4216; J2405

== ENCOUNTER 2022-07-18 15:43 | Emergency (ER) | payer MEDICARE, SELFPAY ==
[2022-07-18 15:44] VITALS: BP 153/73; PULSE 80; RESP 18; TEMP 36.9; O2SAT 98; BMI 23.9
--- NOTE | 2022-07-18 16:20 | RAD_ITS ---
STUDY: X-RAY - LEFT FOOT CLINICAL: Female, 76 years old. injury TECHNIQUE: 3 view(s) of the foot. COMPARISON: None. FINDINGS: Normal talus, calcaneus, and tarsal bones. Normal visualized subtalar, talonavicular, calcaneocuboid, tarsal and tarsometatarsal articulations. Normal metatarsi. 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 Moderate bunion. Normal tibial and fibular sesamoid bones. Normal interphalangeal joint of the great toe. Normal phalanges of the great toe. Normal second through fifth metatarsophalangeal joints. Normal interphalangeal joints and phalanges of the lesser toes. There is focal dorsal soft tissue swelling. There is no demonstrated fracture. RAD/Foot min 3 Views IMPRESSION: No acute fracture or dislocation seen. Electronically Signed: Danilo Hoff MD at 16:55 EDT ,
--- NOTE | 2022-07-18 16:23 | EX.ED.DYSGE1 ---
HPI <LOIS Gage - Last Filed: 07/18/22 17:46> History of Present Illness Chief Complaint: Lower Extremity Injury Narrative Narrative: Patient presenting today with pain to her left foot. 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 She states the weight was 45 pounds. She had a difficult time bearing weight yesterday and this morning but states she can now bear weight. She denies any other injury. PFSH <LOSI Gage - Last Filed: 07/18/22 17:46> [facility] Home Medications ascorbic acid (vitamin C) 500 mg tablet (Vitamin C) 1,000 mg PO BREAKFAST 12/25/12 [History Last Taken 03/30/17 1000 mg] coenzyme Q10 100 mg capsule (Co Q-10) 100 mg PO DAILY 12/25/12 [History Last Taken 03/30/17 100 mg] magnesium 250 mg tablet 250 mg PO DAILY 12/25/12 [History Last Taken 03/30/17 250 mg] multivit-iron 18 mg-folic acid 400 mcg-calcium 500 mg-minerals tablet (Women's One Daily) 1 ea PO DAILY 12/25/12 [History Last Taken 03/30/17] omega 9-gxn-tww-vitamin D3 550 mg(500 mg-50 mg)-300 unit capsule 1 ea PO DAILY 12/25/12 [History Last Taken 03/30/17] calcium carbonate 500 mg-vitamin D3 5 mcg (200 unit) tablet (Calcium 500 + D) 1 ea PO DAILY 01/08/16 [History Last Taken 03/30/17] cholecalciferol (vitamin D3) 25 mcg (1,000 unit) tablet (Vitamin D3) 1,000 unit PO DAILY 01/08/16 [History Last Taken 03/30/17] acetaminophen 500 mg tablet (Non-Aspirin Extra Strength) 500 mg PO 4X/DAY PRN PRN Pain #1 TAB 01/10/16 [Rx Last Taken 03/30/17] ibuprofen 600 mg tablet 600 mg PO 4X/DAY PRN Pain #1 TAB 01/10/16 [Rx Last Taken 03/30/17] ondansetron HCl 4 mg tablet 4 mg PO Q6H PRN PRN Nausea #12 tabs 04/01/17 [Rx Last Taken Unknown] oxycodone 5 mg tablet 5 mg PO Q6H PRN PRN Pain ##8 04/01/17 [Rx Last Taken Unknown] Allergy/AdvReac Type Severity Reaction Status Date / Time No Known Allergies Allergy Verified 07/18/22 15:44 Social History Smoking Status: Never smoker ROS <LOIS Gage - Last Filed: 07/18/22 17:46> ROS ED Constitutional Constitutional ED: Denies chills, fever(s) or sweats Cardiovascular Cardiovascular: Denies chest pain or palpitations Respiratory/Chest Respiratory/Chest: Denies cough or dyspnea Gastrointestinal Gastrointestinal: Denies abdominal pain, nausea or vomiting Musculoskeletal Musculoskeletal: Reports arthralgias; Denies back pain, myalgias or neck pain Integumentary Denies abscess, Abrasions or rash Neurologic Neurologic: Denies confusion, dizziness or paresthesias EXAM <LOIS Gage - Last Filed: 07/18/22 17:46> Physical Exam Const Vital Signs: 07/18/22 15:44 07/18/22 17:13 Temperature 98.5 F Temperature Source Temporal Pulse Rate 80 75 Respiratory Rate 18 16 Blood Pressure 153/73 H 125/78 H Blood Pressure Mean 99 Pulse Ox 98 97 Oxygen Delivery Method Room Air Positive well nourished, well developed and no apparent distress General Appearance ED: well developed HEENT Reports normocephalic and head/scalp atraumatic Mouth ED: Yes moist mucous membranes normal Eyes PERRL and EOMs intact bilaterally Neck full ROM and supple Chest Wall inspection of chest normal Resp normal respiratory effort and clear to auscultation bilaterally Cardio regular rate and regular rhythm GI soft to palpation, non-tender, non-distended and no masses Back/Spine normal ROM and normal to inspection Extremity normal to inspection and full ROM Extremity Narrative: Left foot edematous, generalized pain to palpation to the dorsal aspect of the left foot. DP pulses 2+ and equal bilaterally, good capillary refill, sensation intact. Neuro oriented x3, CN's II-XII intact bilaterally, moves all extremities, no focal motor deficits and no sensory deficits noted Sensorium / Orientation: awake and alert Psych mental status grossly normal and thought process normal Skin no rashes or lesions noted and no wounds <Dr. Nitin Lopez MD - Last Filed: 07/18/22 22:10> Physical Exam Const Vital Signs: 07/18/22 15:44 07/18/22 17:13 Temperature 98.5 F Temperature Source Temporal Pulse Rate 80 75 Respiratory Rate 18 16 Blood Pressure 153/73 H 125/78 H Blood Pressure Mean 99 Pulse Ox 98 97 Oxygen Delivery Method Room Air [facility] <LOIS Gage - Last Filed: 07/18/22 17:46> [facility] Narrative Medical decision making narrative: Patient presenting today with pain to the dorsal aspect of her left foot after dropping a 45 pound weight on it yesterday. She is currently able to bear weight but was not able to yesterday or this morning. X-ray will be obtained to rule out fracture and is negative. She denies any Tylenol or ibuprofen for pain at this time. Patient has a L foot contusion, she has been given RICE instructions. She is able to ambulate without difficulty. She is to follow-up with PCP as needed and will be discharged home in stable condition. She is comfortable with plan. Radiography X-Ray: Read by ED Physician and Read by Radiologist Diagnostic Testing: Clinical Impression(s) from Imaging Studies Foot X-Ray 07/18/22 16:20 IMPRESSION: No acute fracture or dislocation seen. Electronically Signed: Danilo Hoff MD at 16:55 EDT , <Dr. Nitin Lopez MD - Last Filed: 07/18/22 22:10> [facility] Radiography Diagnostic Testing: Clinical Impression(s) from Imaging Studies Foot X-Ray 07/18/22 16:20 IMPRESSION: No acute fracture or dislocation seen. Electronically Signed: Danilo Hoff MD at 16:55 EDT , Treatment and Re-Evaluation Comments:: Seen and evaluated independently and in conjunction with physician web assistant. Agree with notes above unless documented otherwise. Blunt trauma to the dorsal left midfoot. Able to walk on it. No other injuries. Tender and swollen dorsal left midfoot. No deformities. Neurovascular intact distally. X-rays 3 views left foot negative on my interpretation, radiology in agreement. Patient reassured just contused, outpatient follow-up as needed. Supportive care. Discharge Plan Triage Chief Complaint: Lower Extremity Injury ED Midlevel Provider: Dede Vences ED Provider: Nitin Lopez Dx/Rx/DC Orders Clinical Impression: Contusion of foot, left Instructions: ED Foot Contusion Prescriptions: No Action ascorbic acid (vitamin C) [Vitamin C] 500 MG tablet 1,000 mg PO BREAKFAST Label Comments: mineral supplement magnesium 250 MG tablet 250 mg PO DAILY Label Comments: mineral supplement [id number]-ahmc-FU-calcium-mins [Women's One Daily] 1 EACH tablet 1 ea PO DAILY Label Comments: mineral supplement omega 1-esu-pul-vitamin D3 1 EACH capsule 1 ea PO DAILY Label Comments: dietary supplement coenzyme Q10 [Co Q-10] 100 MG capsule 100 mg PO DAILY Label Comments: dietary supplement calcium carbonate-vitamin D3 [Calcium 500 + D] 1 EACH tablet 1 ea PO DAILY Label Comments: SUPPLEMENT cholecalciferol (vitamin D3) [Vitamin D3] 1,000 UNIT tablet 1,000 unit PO DAILY Label Comments: SUPPLEMENT ibuprofen 600 MG tablet 600 mg PO 4X/DAY PRN (Reason: Pain) Qty: 1 0RF Label Comments: PAIN acetaminophen [Non-Aspirin Extra Strength] 500 MG tablet 500 mg PO 4X/DAY PRN PRN (Reason: Pain) Qty: 1 0RF Label Comments: PAIN ondansetron HCl 4 MG tablet 4 mg PO Q6H PRN PRN (Reason: Nausea) Qty: 12 0RF oxycodone 5 MG tablet 5 mg PO Q6H PRN PRN (Reason: Pain) Qty: 8 0RF Primary Care Provider: Care Physician,No Primary Referrals: Care Physician,No Primary [Primary Care Provider] - Activity Restrictions/Additional Instructions: You can ice the area for 10 to 15 minutes 3-4 times a day for the next few days. You can alternate Tylenol and ibuprofen for pain. Keep your foot elevated when you can to help with the swelling. Disposition Disposition: Home, Self Care Discharge Date/Time: 07/18/22 17:18
[2022-07-18 17:13] VITALS: BP 125/78; PULSE 75; RESP 16; O2SAT 97
== END 2022-07-18 17:18 | disposition home or self-care (01) ==
PROVIDERS: Emergency Provider Emergency Medicine; Visit Provider Emergency Medicine
DX: S90.32XA Contusion of left foot, initial encounter (principal); W20.8XXA Other cause of strike by thrown, projected or falling object, initial encounter; Y93.89 Activity, other specified; Y92.89 Other specified places as the place of occurrence of the external cause
CPT/HCPCS: 73630; 99282